=== PATIENT | female | born 1970 | race Caucasian/White ===

== ENCOUNTER 2018-02-02 23:27 | Inpatient (IN) ==
[2018-02-02] MEDS ORDERED: Sod Chloride 0.9% Inj 1,000 ML IV.SIG ONE (23:54)
--- NOTE | 2018-02-03 00:03 | ED ---
HPI General Chief Complaint: Abdominal Pain Stated Complaint: constipation x2 days Time Seen by Provider: 02/02/18 23:44 Source: patient Mode of arrival: ambulatory Limitations: no limitations History of Present Illness HPI narrative: Patient is a 47 year old female who presents to the ER with complaints of constipation. Patient reports that on Thursday she had shoulder surgery and was placed on hydrocodone for pain control. Patient reports that this hydrocodone has made her constipated. Patient reports that she has been having severe abdominal pain and bloating, she did have a bowel movement this morning but feels as if she is full of stool. Patient did take an enema as well as an oral laxative without relief of symptoms. Patient reports that she is uncomfortable, reports concerns for constipation. At baseline, she does not have bowel movements every day. Reports nausea with no vomiting, denies any fever or chills, no history of any abdominal surgeries in the past. MD complaint: abdominal pain Onset (ago): day(s) (2 days) Pain Consistency: constant Location: diffuse Severity: moderate Quality: cramping Radiation: none Relieving factors: nothing Exacerbating factors: medication (patient on hydrocodone for recent shoulder surgery) Associated symptoms: nausea Treatments prior to arrival: prescription analgesics Related Data Home Medications Medication Instructions Recorded Confirmed No Known Home Medications 02/02/18 02/02/18 Allergies Allergy/AdvReac Type Severity Reaction Status Date / Time aspirin Allergy Rash Verified 02/02/18 23:50 acetaminophen [From Percocet] AdvReac Severe Itching, Verified 02/02/18 23:50 Generalized oxycodone [From Percocet] AdvReac Severe Itching, Verified 02/02/18 23:50 Generalized Review of Systems ROS: all other systems reviewed are negative PMFSH Surgical History Surgical History S/P shoulder surgery (Acute) S/P partial hysterectomy (Acute) Social History Social History Substance History: No History of Abuse Second Hand Smoke Exposure: No Smoking Status: Never smoker How Often Do You Have a Drink Containing Alcohol: Monthly or less Recent Travel in [facility] within the Last 8 Weeks: No Recent Out of Country Travel within the Last 8 Weeks: No Immunization History Tetanus Immunization: Unsure Hx Influenza Vaccine This Season: No Exam Narrative Exam Narrative: GENERAL: Mild distress SKIN: Focused skin assessment warm/dry. HEAD: Atraumatic. Normocephalic. EYES: Pupils equal and round. No scleral icterus. No injection or drainage. ENT: No nasal bleeding or discharge. Mucous membranes pink and moist. NECK: Trachea midline. No JVD. CARDIOVASCULAR: Regular rate and rhythm. No murmur appreciated. RESPIRATORY: No accessory muscle use. Clear to auscultation. Breath sounds equal bilaterally. GASTROINTESTINAL: Abdomen soft, non-tender, nondistended. Hepatic and splenic margins not palpable. RECTAL EXAM: performed with RN at bedside, no stool in rectal vault, no fecal impaction MUSCULOSKELETAL: No obvious deformities. No clubbing. No cyanosis. No edema. NEUROLOGICAL: Awake and alert. No obvious cranial nerve deficits. Motor grossly within normal limits. Normal speech. PSYCHIATRIC: Appropriate mood and affect; insight and judgment normal. Course Initial Documented Vital Signs Temperature 97.7 F 02/02/18 23:28 Pulse Rate 70 02/02/18 23:28 Respiratory Rate 18 02/02/18 23:28 Blood Pressure 153/76 H 02/02/18 23:28 Pulse Oximetry 95 02/02/18 23:28 Last Documented Vital Signs Temperature 97.7 F 02/02/18 23:28 Pulse Rate 64 02/03/18 02:02 Respiratory Rate 18 02/03/18 02:02 Blood Pressure 147/76 H 02/03/18 02:02 Pulse Oximetry 98 02/03/18 02:02 Medical Decision Making MDM Narrative Medical decision making narrative: During the course of the patients emergency department visit, the patients history, examination, and differential diagnosis were reviewed with the patient. The patient was placed on a property assessment monitor with oximetry and frequent blood pressure monitoring. The patient had an IV access obtained and blood work sent for analysis. The patient was initially provided IVF as well as zofran Labs reviewed, patient with transaminitis with T bili 1.7, AST 471, ALT 449, alk phos 228 CT of the abdomen and pelvis with no acute findings, a right upper quadrant ultrasound was ordered to rule out gallbladder disease given her transaminitis and elevated T bili Patient was reevaluated, reports that she is not feeling any better. Patient's right upper quadrant ultrasound shows gallbladder stones and sludge with a mildly prominent common bile duct. Patient with mostly symptomatic cholelithiasis -she does have significant transaminitis as well as an elevated T bili, right upper quadrant tenderness with gallbladder stones and sludge Plan to admit to the medicine service Case reviewed with Dr. Duque who accepts pt to service. Medical Screen Exam Complete: Yes Emergency Medical Condition: Yes Differential Diagnosis Differential Diagnosis: constipation, fecal impaction, SBO, Cholecystitis, pancreatitis, appendicitis Medical Records Medical records reviewed: Yes I reviewed the patient's medical records. Lab Data Lab results reviewed: Yes I reviewed the patient's lab results. Result diagrams: 02/03/18 00:15 02/03/18 00:15 POC Results POC Urine Results Negative Lab Results 02/03/18 02/03/18 02/03/18 Range/Units 00:15 00:15 00:15 CBC w Diff Auto diff final WBC 8.3 (4.0-11.0) th/mm3 RBC 4.53 (4.00-5.30) mil/mm3 Hgb 13.4 (11.6-15.3) gm/dL Hct 39.8 (35.0-46.0) % MCV 88.0 (80.0-100.0) fL MCH 29.6 (27.0-34.0) pg MCHC 33.7 (32.0-36.0) % RDW 12.4 (11.6-17.2) % Plt Count 306 (150-450) th/mm3 MPV 9.0 (7.0-11.0) fL Neut % (Auto) 72.1 H (16.0-70.0) % Lymph % (Auto) 20.0 (9.0-44.0) % [place] % (Auto) 4.6 (0.0-8.0) % Eos % (Auto) 2.8 (0.0-4.0) % Baso % (Auto) 0.5 (0.0-2.0) % Neut # (Auto) 6.0 (1.8-7.7) th/mm3 Lymph # (Auto) 1.7 (1.0-4.8) th/mm3 [place] # (Auto) 0.4 (0.0-0.9) th/mm3 Eos # (Auto) 0.2 (0.0-0.4) th/mm3 Baso # (Auto) 0.0 (0.0-0.2) th/mm3 WBC Differential . Differential Comment . Sodium 136 (136-145) meq/L Potassium 3.6 (3.5-5.1) meq/L Chloride 101 (98-107) meq/L Carbon Dioxide 25.4 (21.0-32.0) meq/L Anion Gap 10 (5-15) meq/L BUN 9 (7-18) mg/dL Creatinine 0.74 (0.50-1.00) mg/dL Estimated GFR 83 L (>89) mL/min Random Glucose 135 H (74-106) mg/dL Calcium 9.2 (8.5-10.1) mg/dL Total Bilirubin 1.7 H (0.2-1.0) mg/dL AST 471 H (15-37) U/L ALT 449 H (10-53) U/L Alkaline Phosphatase 228 H (45-117) U/L Total Protein 8.3 H (6.4-8.2) g/dL Albumin 3.9 (3.4-5.0) g/dL Lipase 129 (73-393) U/L Urine Color Yellow (Yellw/Straw) Urine Clarity Clear (Clear) Urine pH 7.0 (5.0-8.5) Ur Specific [place] Less/equal 1.005 (1.002-1.035) Urine Protein Negative (Neg-Trace) mg/dL Urine Glucose (UA) Negative (Negative) mg/dL Urine Ketones Negative (Negative) mg/dL Urine Occult Blood Moderate H (Negative) Urine Nitrate Negative (Negative) Urine Bilirubin Negative (Negative) Urine Urobilinogen 1.0 (Less than 2) mg/dL Ur Leukocyte Esterase Negative (Negative) Urine RBC 15-50 H (0-3) /hpf Urine WBC 0-5 (0-5) /hpf Ur Squamous Epith Cells 0-5 (0-5) /hpf Micro UA Comment Culture not ind Ur Microscopic Review Microscopic reviewed Urine Culture Comments Culture not ind Imaging Data Attestation: I personally reviewed and interpreted this imaging study as follows : Radiologist's impression: Abdomen/Pelvis CT 02/03/18 00:35 CONCLUSION: No acute CT findings in the abdomen or pelvis. Gallbladder Ultrasound 02/03/18 02:07 CONCLUSION: 1. Gallbladder stones and sludge. 2. Mildly prominent common bile duct Discharge Plan Discharge Disposition Patient Disposition: 30 Still Patient Discharge Condition Condition: Stable Discharge Details Diagnosis: Symptomatic cholelithiasis Physicians Team ED Provider: Erica Gonzalez Primary Care Provider: Primary Care Leah Romo Rxs /Orders / Referrals /Forms Prescriptions: No Action No Known Home Medications RF: 0 Status ED Status: Admitted Observation Patient
[2018-02-03 00:23] LABS: Baso % (Auto) 0.5 % (0.0-2.0); Eos # (Auto) 0.2 th/mm3 (0.0-0.4); Eos % (Auto) 2.8 % (0.0-4.0); Hematocrit 39.8 % (35.0-46.0); Hemoglobin 13.4 gm/dL (11.6-15.3); Lymph # (Auto) 1.7 th/mm3 (1.0-4.8); Mean Corpuscular HGB Conc 33.7 % (32.0-36.0); Mean Corpuscular Hemoglobin 29.6 pg (27.0-34.0); Mono # (Auto) 0.4 th/mm3 (0.0-0.9); Mono % (Auto) 4.6 % (0.0-8.0); Neut % (Auto) 72.1 % (16.0-70.0); Platelet Count 306 th/mm3 (150-450); Red Blood Count 4.53 mil/mm3 (4.00-5.30); Red Cell Distribution Width 12.4 % (11.6-17.2); White Blood Count 8.3 th/mm3 (4.0-11.0)
[2018-02-03 00:26] LABS: Bilirubin,Urine Negative (Negative); Clarity,Urine Clear (Clear); Color,Urine Yellow (Yellw/Straw); Glucose,Urine (UA) Negative (Negative); Leukocyte Esterase,Urine Negative (Negative); Nitrite,Urine Negative (Negative); Specific Gravity,Urine Less/Equal 1.005 (1.002-1.035)
[2018-02-03 00:30] LABS: Chloride 101 meq/L (98-107); Potassium 3.6 meq/L (3.5-5.1); Sodium 136 meq/L (136-145)
[2018-02-03 00:32] LABS: Squamous Epithelial Cell,Urine 0-5 /hpf (0-5); WBC,Urine 0-5 /hpf (0-5)
[2018-02-03 00:34] LABS: Albumin 3.9 g/dL (3.4-5.0); Anion Gap 10 meq/L (5-15); Blood Urea Nitrogen 9 mg/dL (7-18); Calcium 9.2 mg/dL (8.5-10.1); Carbon Dioxide 25.4 meq/L (21.0-32.0); Glucose,Random 135 mg/dL (74-106); Lipase 129 U/L (73-393)
[2018-02-03 00:37] LABS: Alanine Aminotransferase 449 U/L (10-53); Aspartate Aminotransferase 471 U/L (15-37); Glomerular Filtration Rate 83 mL/min (>89)
[2018-02-03 00:39] LABS: Total Protein 8.3 g/dL (6.4-8.2)
[2018-02-03 00:40] LABS: Alkaline Phosphatase 228 U/L (45-117)
--- NOTE | 2018-02-03 02:00 | CT ---
EXAM DATE: 02/03/2018 1:34 AM EDT AGE/SEX: 47 years / Female INDICATIONS: Umbilical abdominal pain. Constipation. CLINICAL DATA: This is the patient's initial encounter. Patient reports that signs and symptoms have been present for 3 days and indicates a pain score of 5/10. MEDICAL/SURGICAL HISTORY: None. Hysterectomy. RADIATION DOSE: 19.35 CTDI (mGy) COMPARISON: No prior exams available for comparison. TECHNIQUE: Multiple contiguous axial images were obtained through the abdomen. Images were obtained using multiple row detector helical technique. Using automated exposure control and adjustment of the mA and/or kV according to patient size, radiation dose was kept as low as reasonably achievable to o btain optimal diagnostic quality images. DICOM format image data is available electronically for rev iew and comparison. FINDINGS: Lower Lungs: The visualized lower lungs are clear. Liver: The liver has a homogeneous density without space-occupying lesion. There is no dilation of th e biliary tree. Spleen: Homogeneous density without enlargement. Pancreas: Unremarkable without mass or calcification. Kidneys: Normal in size and shape. No evidence of mass or hydronephrosis. Adrenal Glands: Unremarkable. Aorta: The aorta and proximal iliac vessels are grossly unremarkable without aneurysmal dilation. Bowel/Mesentery: The bowel loops are grossly unremarkable. The cecum and sigmoid colon have a normal configuration. Appendix is seen and appears normal Abdominal Wall: Intact. Retroperitoneum: No evidence of adenopathy in the retrocrural, para-aortic, or deep pelvic regions. Bladder: Contours are smooth. Reproductive Organs: Uterus surgically absent. No evidence of pelvic mass or free fluid. Inguinal: The inguinal region is unremarkable without evidence of adenopathy. Bony Structures: Unremarkable. CONCLUSION: No acute CT findings in the abdomen or pelvis. Electronically signed by: Uday Wang MD 02/03/2018 1:59 AM EDT
--- NOTE | 2018-02-03 03:07 | US ---
EXAM DATE: 02/03/2018 2:54 AM EDT AGE/SEX: 47 years / Female INDICATIONS: Right upper quadrant pain. CLINICAL DATA: This is the patient's initial encounter. Patient reports that signs and symptoms have been present for 2 days and indicates a pain score of 8/10. MEDICAL/SURGICAL HISTORY: . Right upper quadrant pain. Hysterectomy. Shoulder surgery. COMPARISON: [facility], CT ABDOMEN & PELVIS W/O CONTRAST, 02/03/2018. . MEASUREMENTS: Liver:__ 19.3 cm. Common Bile Duct:__ 9mm. FINDINGS: Liver: Tiny cyst in the left lobe. No suspicious mass or biliary ductal dilatation. Portal Vein: Hepatopedal flow seen in portal vein. Common Duct: Mildly prominent at 9 mm in the hepatic hilum. No filling defects. Gallbladder: Mildly distended with stones and sludge Pancreas: Not well visualized. Right Kidney: Normal echotexture and cortical thickness. No mass or hydronephrosis. Other: None. CONCLUSION: 1. Gallbladder stones and sludge. 2. Mildly prominent common bile duct Electronically signed by: Uday Wang MD 02/03/2018 3:06 AM EDT
[2018-02-03] MEDS ORDERED: Morphine Inj 4 MG/ML Vial IV.PUSH ONE (03:41)
[2018-02-03] MEDS ORDERED: Bisacodyl 10 MG Supp RECTAL PRN (03:52)
[2018-02-03] MEDS: Sod Chloride 0.9% Inj 1,000 ML IV.CONT SCH ×3 (03:55→13:53)
[2018-02-03] MEDS ORDERED: Naloxone Inj 0.4 MG/ML Vial IV.PUSH PRN (05:33)
[2018-02-03] MEDS: Senna/Docusate Sodium 8.6/50 MG Tablet PO SCH ×2 (08:07→22:28)
[2018-02-03] MEDS: Morphine Inj 4 MG/ML Vial IV.PUSH PRN ×3 (08:07→20:13)
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
--- NOTE | 2018-02-03 11:10 | MR ---
EXAM DATE: 02/03/2018 10:59 AM EDT AGE/SEX: 47 years / Female INDICATIONS: Cholelithiasis. CLINICAL DATA: This is the patient's subsequent encounter. Patient reports that signs and symptoms h ave been present for 1 day and indicates a pain score of 3/10. MEDICAL/SURGICAL HISTORY: None. Rotator cuff, right. section. Hysterectomy. COMPARISON: [facility], CT ABDOMEN & PELVIS W/O CONTRAST, 02/03/2018. . TECHNIQUE: Multiplanar, multisequence images of the abdomen were obtained without contrast including dedicated cholangiographic images. FINDINGS: Liver: The liver is homogeneous and normal in signal intensity with multiple small cysts in the live r. Intrahepatic Bile Ducts: There is no intrahepatic biliary ductal dilatation. Common Bile Duct: The common bile duct is normal in caliber No filling defects or obstructing lesio ns are identified. Gallbladder: There is a 1.4 cm sized gallstone in the gallbladder. The gallbladder is normal with no evidence for gallbladder wall thickening, or pericholecystic fluid. Pancreas: The pancreas appears normal in signal with no focal parenchymal abnormalities. The pancrea tic duct is normal in caliber with no filling defects, or obstructing lesions identified. CONCLUSION: 1. 1.4 cm gallstone in the gallbladder otherwise unremarkable study Electronically signed by: Hilton Land MD 02/03/2018 11:08 AM EDT
--- NOTE | 2018-02-03 11:45 | P.CONGS ---
[facility] Gen Surgery Consult Note Consult date: 02/03/18 Reason for consult: abdominal pain Requesting physician: Erica Duque Narrative: This is a 47 year old female who just had a RIGHT shoulder rotator cuff last week in [place] who presented to the ED with complaints of abdominal pain. She was taking narcotic pain medication for her post op shoulder pain and thought she was constipated. She took several over the counter medications and did have a bowel movement but the pain persisted. She does report associated nausea and vomiting. A CT abdomen/pelvis was obtained which showed no acute findings. An US of the gallbladder was obtained which shows gallbladder stones and sludge as well as a mildly prominent common bile duct. Her LFTS are elevated. An MRCP was completed which shows a 1.4 cm gallstone with a normal size common bile duct. Of note, she states she has had similar mild episodes of abdominal pain for the past few years but the only workup she had was an EGD which showed mild gastritis. A General Surgery consultation has been requested. Review of Systems All other systems reviewed negative except as stated in [facility] - History History Provided By: Patient - Medical History Medical History: Medical History (Last Reviewed 02/03/18 @ 13:15 by RAÚL Mcghee) No pertinent past medical history - Surgical History Surgical History: Surgical History (Last Updated 02/03/18 @ 13:20 by RAÚL Mcghee) S/P section S/P shoulder surgery S/P partial hysterectomy - Family History Family History: Family History (Last Updated 02/03/18 @ 11:58 by Monica Infante) Other No pertinent family history - Tobacco History Second Hand Smoke Exposure: Yes Tobacco Use In Past 30 Days: No Smoking Status: Never smoker - Alcohol History How Often Do You Have a Drink Containing Alcohol: Monthly or less - Substance Use History Substance History: No History of Abuse - Travel History Recent Travel in the [place] Within the Last 8 Weeks: No Recent Travel Out of the Country Within the Last 8 Weeks: No - Immunization History Tetanus Immunization: Unsure Hx Influenza Vaccine This Season: No Medications and Allergies Allergies Allergy/AdvReac Type Severity Reaction Status Date / Time aspirin Allergy Rash Verified 02/02/18 23:50 acetaminophen [From Percocet] AdvReac Severe Itching, Verified 02/02/18 23:50 Generalized oxycodone [From Percocet] AdvReac Severe Itching, Verified 02/02/18 23:50 Generalized Home Medications Medication Instructions Recorded Confirmed Type No Known Home Medications 02/02/18 02/02/18 History Active Medications: Active Medications Al Hydroxide/Mg Hydroxide (Milk Of Magnesia Liq) 30 ml PO Q12H PRN PRN Reason: Mild Constipation Bisacodyl (Dulcolax Supp) 10 mg RECTAL DAILY PRN PRN Reason: SEVERE CONSITIPATION Sodium Chloride (Ns Inj) 1,000 mls @ 100 mls/hr IV.CONT .Q10H [facility] Last Infusion: 02/03/18 05:08 Dose: 100 mls/hr Lactulose (Lactulose Liq) 30 ml PO DAILY PRN PRN Reason: SEVERE CONSITIPATION Morphine Sulfate (Morphine Inj) 4 mg IV.PUSH Q4H PRN PRN Reason: pain 6-10 Last Admin: 02/03/18 08:07 Dose: 4 mg Naloxone HCl (Narcan Inj) 0.4 mg IV.PUSH UNSCH PRN PRN Reason: SEE LABEL COMMENTS Ondansetron HCl (Zofran Inj) 4 mg IV.PUSH Q6H PRN PRN Reason: NAUSEA OR VOMITING Last Admin: 02/03/18 08:07 Dose: 4 mg Senna/Docusate Sodium (Shima-Colace) 1 tab PO BID [facility] Last Admin: 02/03/18 08:07 Dose: 1 tab Sennosides (Senokot) 17.2 mg PO Q12H PRN PRN Reason: Moderate Constipation Sodium Chloride (Ns Flush) 2 ml IV.FLUSH PRN PRN PRN Reason: FLUSH AFTER USING IV ACCESS Exam Vital signs: Vital Signs 02/02/18 23:28 02/03/18 02:02 02/03/18 03:53 Temperature 97.7 F Pulse Rate 70 64 66 Respiratory Rate 18 18 18 Blood Pressure 153/76 H 147/76 H 146/82 H Pulse Oximetry 95 98 97 02/03/18 05:06 02/03/18 08:00 Temperature 97.5 F L 98.8 F Pulse Rate 72 67 Respiratory Rate 16 16 Blood Pressure 137/68 128/72 Pulse Oximetry 95 96 Intake & Output 02/02/18 02/03/18 02/03/18 18:59 06:59 18:59 Intake Total 1150 / 1150 Balance 1150 / 1150 Weight 76.6 kg Intake: IV 1150 / 1150 NS Inj 1,000 ML @ 100 mls/hr IV 150 / 150 .CONT .Q10H IRVIN Rx#:[id number] NS Inj 1,000 ML @ Wide Open IV. 1000 / 1000 SIG BOLUS ONE Rx#:[id number] Other: Date of Last Bowel Movement 02/02/18 Weight On Admission 154.94 kg Narrative: GENERAL: Very pleasant 47 year old female resting in bed in no acute distress. SKIN: Warm and dry. HEAD: Atraumatic. Normocephalic. EYES: Pupils equal and round. No scleral icterus. No injection or drainage. ENT: No nasal bleeding or discharge. Mucous membranes pink and moist. NECK: Trachea midline. CARDIOVASCULAR: Regular rate and rhythm. RESPIRATORY: No accessory muscle use. Clear to auscultation. Breath sounds equal bilaterally. GASTROINTESTINAL: Abdomen soft, non distended. RUQ tenderness with palpation. Low well healed incision. MUSCULOSKELETAL: Extremities without clubbing, cyanosis, or edema. No obvious deformities. NEUROLOGICAL: Awake and alert. No obvious cranial nerve deficits. RIGHT arm in sling with RIGHT shoulder dressing. Normal speech. PSYCHIATRIC: Appropriate mood and affect; insight and judgment normal. Results - Labs 02/03/18 00:15 02/03/18 00:15 Laboratory Results CBC w Diff Auto diff final 02/03/18 00:15 WBC 8.3 th/mm3 (4.0-11.0) 02/03/18 00:15 RBC 4.53 mil/mm3 (4.00-5.30) 02/03/18 00:15 Hgb 13.4 gm/dL (11.6-15.3) 02/03/18 00:15 Hct 39.8 % (35.0-46.0) 02/03/18 00:15 MCV 88.0 fL (80.0-100.0) 02/03/18 00:15 MCH 29.6 pg (27.0-34.0) 02/03/18 00:15 MCHC 33.7 % (32.0-36.0) 02/03/18 00:15 RDW 12.4 % (11.6-17.2) 02/03/18 00:15 Plt Count 306 th/mm3 (150-450) 02/03/18 00:15 MPV 9.0 fL (7.0-11.0) 02/03/18 00:15 Neut % (Auto) 72.1 % (16.0-70.0) H 02/03/18 00:15 Lymph % (Auto) 20.0 % (9.0-44.0) 02/03/18 00:15 [place] % (Auto) 4.6 % (0.0-8.0) 02/03/18 00:15 Eos % (Auto) 2.8 % (0.0-4.0) 02/03/18 00:15 Baso % (Auto) 0.5 % (0.0-2.0) 02/03/18 00:15 Neut # (Auto) 6.0 th/mm3 (1.8-7.7) 02/03/18 00:15 Lymph # (Auto) 1.7 th/mm3 (1.0-4.8) 02/03/18 00:15 [place] # (Auto) 0.4 th/mm3 (0.0-0.9) 02/03/18 00:15 Eos # (Auto) 0.2 th/mm3 (0.0-0.4) 02/03/18 00:15 Baso # (Auto) 0.0 th/mm3 (0.0-0.2) 02/03/18 00:15 WBC Differential . 02/03/18 00:15 Differential Comment . 02/03/18 00:15 Sodium 136 meq/L (136-145) 02/03/18 00:15 Potassium 3.6 meq/L (3.5-5.1) 02/03/18 00:15 Chloride 101 meq/L (98-107) 02/03/18 00:15 Carbon Dioxide 25.4 meq/L (21.0-32.0) 02/03/18 00:15 Anion Gap 10 meq/L (5-15) 02/03/18 00:15 BUN 9 mg/dL (7-18) 02/03/18 00:15 Creatinine 0.74 mg/dL (0.50-1.00) 02/03/18 00:15 Estimated GFR 83 mL/min (>89) L 02/03/18 00:15 Random Glucose 135 mg/dL (74-106) H 02/03/18 00:15 Calcium 9.2 mg/dL (8.5-10.1) 02/03/18 00:15 Total Bilirubin 1.7 mg/dL (0.2-1.0) H 02/03/18 00:15 AST 471 U/L (15-37) H 02/03/18 00:15 ALT 449 U/L (10-53) H 02/03/18 00:15 Alkaline Phosphatase 228 U/L (45-117) H 02/03/18 00:15 Total Protein 8.3 g/dL (6.4-8.2) H 02/03/18 00:15 Albumin 3.9 g/dL (3.4-5.0) 02/03/18 00:15 Lipase 129 U/L (73-393) 02/03/18 00:15 Urine Color Yellow (Yellw/Straw) 02/03/18 00:15 Urine Clarity Clear (Clear) 02/03/18 00:15 Urine pH 7.0 (5.0-8.5) 02/03/18 00:15 Ur Specific [place] Less/equal 1.005 (1.002-1.035) 02/03/18 00:15 Urine Protein Negative mg/dL (Neg-Trace) 02/03/18 00:15 Urine Glucose (UA) Negative mg/dL (Negative) 02/03/18 00:15 Urine Ketones Negative mg/dL (Negative) 02/03/18 00:15 Urine Occult Blood Moderate (Negative) H 02/03/18 00:15 Urine Nitrate Negative (Negative) 02/03/18 00:15 Urine Bilirubin Negative (Negative) 02/03/18 00:15 Urine Urobilinogen 1.0 mg/dL (Less than 2) 02/03/18 00:15 Ur Leukocyte Esterase Negative (Negative) 02/03/18 00:15 Urine RBC 15-50 /hpf (0-3) H 02/03/18 00:15 Urine WBC 0-5 /hpf (0-5) 02/03/18 00:15 Ur Squamous Epith Cells 0-5 /hpf (0-5) 02/03/18 00:15 Micro UA Comment Culture not ind 02/03/18 00:15 Ur Microscopic Review Microscopic reviewed 02/03/18 00:15 Urine Culture Comments Culture not ind 02/03/18 00:15 Impressions Cholangiopancreatography MRI 02/03/18 00:00 CONCLUSION: 1. 1.4 cm gallstone in the gallbladder otherwise unremarkable study Abdomen/Pelvis CT 02/03/18 00:35 CONCLUSION: No acute CT findings in the abdomen or pelvis. Gallbladder Ultrasound 02/03/18 02:07 CONCLUSION: 1. Gallbladder stones and sludge. 2. Mildly prominent common bile duct - Imaging CT scan - abdomen: image reviewed Additional studies: US gallbladder and MRCP reviewed Assessment and Plan - Assessment (1) Symptomatic cholelithiasis Code(s): K80.20 - Calculus of gallbladder without cholecystitis without obstruction Status: Acute Plan: 47 year old female s/p 1 week RIGHT shoulder surgery now with symptomatic cholelithiasis -MRCP reviewed---no need for ERCP -Plan for lap taylor this afternoon if OR available -NPO -Obtain consents -Pre operative antibiotics have been ordered -Repeat LFTs in AM -Procedure explained including risks and benefits -Thank you for this consult; We will continue to follow - Plan I personally evaluated the patient in room a 16. She is a 47-year-old woman who is one-week status post right shoulder surgery by an orthopedic surgeon in [place] whose name she all. She was supposed to have follow-up there tomorrow. She would developed bloating and thought she was constipated related to pain medications and workup is demonstrated findings consistent with calculus cholecystitis. I have recommended to her laparoscopic cholecystectomy. The procedure in detail is been described as she and her [id number] who is at her bedside. Procedure in detail plus risks of bleeding infection injury to intra-abdominal contents including liver bile duct or bowel possible open surgery DVT pulmonary embolus and expectations for recovery have been reviewed in detail. I contacted the operating room to get her on the schedule, however there is no personnel in the operating room here at the hospital they would have to be called in and there is no certain time that I could be given to schedule her surgery today. I therefore requested time tomorrow morning at 730 to perform her surgery. Preoperative antibiotics and sequential compression device will be used. I personally reviewed her CT scan, her ultrasound, her MRCP. The patient's only prior surgery on the abdomen was low transverse incision including partial hysterectomy and . She has palpable pain in the right upper quadrant, right subcostal position, consistent with cholecystitis. She says she has had an MRI in the past which demonstrated an ovarian cyst. She denies any problems with her recent anesthesia for her shoulder surgery, no nausea or vomiting. She still has somewhat of a sore throat from the intubation however. She indicates her only allergy is to aspirin and it causes a rash. Documentation indicates acetaminophen and oxycodone are an allergy I will specifically ask about what pain medication she would like to use after her surgery. As soon as I get confirmation from the operating room that we can do her surgery tomorrow morning I will let the patient know. The exam, history, and the medical decision-making described in the above note were completed with the assistance of the mid-level provider. I reviewed and agree with the findings presented. I attest that I had a [id number] encounter with the patient on the same day, and personally performed and documented my assessment and findings in the medical record. Discussed Condition With: Dr. Kuldip Quinones/Monica Lim
[2018-02-03] MEDS ORDERED: ceFAZolin 2 GM Premix Inj 2 GM/50 ML PIGGYBACK IV.SIG ONE (13:22)
[2018-02-03] MEDS ORDERED: fentaNYL Citrate Inj 100 MCG/2 ML Ampul ONE ×2 (16:41)
[2018-02-03] MEDS ORDERED: Bupivacaine/Epinephrine Inj 0.25% 50 ML Vial ONE (16:43)
[2018-02-03] MEDS ORDERED: Bupivacaine/Epinephrine PF Inj 0.5% 30 ML Vial ONE (16:43)
[2018-02-03] MEDS ORDERED: Chlorhexidine Gluconate 2% 1 Pack (2 Cloths) TOPICAL ONE (16:57)
[2018-02-03] MEDS ORDERED: Metoprolol Tartrate 25 MG Tablet PO ONE (16:57)
[2018-02-03] MEDS ORDERED: Sodium Chlor 0.9% Inj 500 ML IV.SIG SCH (17:00)
--- NOTE | 2018-02-03 18:04 | P.OP ---
- Preoperative Diagnosis (1) Calculus of gallbladder with cholecystitis - Postoperative Diagnosis (1) Calculus of gallbladder with cholecystitis Date of procedure: 02/03/18 Procedure: Laparoscopic cholecystectomy Anesthesia: SONNY Surgeon: Juan Christiansen MD Flight Attendant/Inflight Supervisor: Shiva Estimated blood loss (mL): 5 Pathology: other (Gallbladder to pathology) Operation and Findings: Patient was identified is Kaley Lim, taken to the operating room, placed in a supine position. Following induction of adequate general endotracheal anesthesia the patient's abdomen was prepped and draped in usual sterile fashion with Betadine. A timeout procedure was performed. Following completion of timeout procedure everyone's satisfaction within the room, a timeout local anesthetic was infiltrated in the supraumbilical position. A small transverse supraumbilical incision was carried out with a scalpel. Dissection came posteriorly to level the base of the umbilicus. This was retracted anteriorly and the supraumbilical fascia incised vertically with a scalpel. This allowed for entry in the peritoneal cavity with a hemostat. Surgeon's finger confirmed intraperitoneal location and the applied medical balloon Wheeler trocar was placed in the peritoneal cavity. CO2 insufflation was performed to the level of 15 mmHg. The patient was placed in a reverse Trendelenburg position turn to left and 2 upper abdominal 5 mm trochars were placed into the peritoneal cavity under direct laparoscopic view after incision and skin with a scalpel. Attention was turned to identification of the gallbladder. Inflammatory adhesions of the omentum covered the gallbladder. These were taken down with a harmonic scalpel. The gallbladder was then removed from the gallbladder fossa and a dome down technique using the harmonic scalpel. There were inflammatory changes and edema in the wall of the gallbladder. Cystic arterial branches of which there were 2 were identified isolated from surrounding tissues and clipped divided using the harmonic scalpel. The cystic duct was isolated from surrounding tissues and ligated proximally distally with 2-0 PDS Endoloops. The cystic duct was divided between the Endoloops using the harmonic scalpel. The gallbladder was placed into an Endo retrieval bag and removed through the supraumbilical fascial incision which had to be extended superiorly to allow for removal of a distended inflamed gallbladder. The gallbladder was passed off the field for pathologic evaluation. Right upper quadrant was examined. Small amount of edematous fluid was suctioned out. There is no bilious or bloody drainage. The cystic duct ligature remained intact. The cystic arterial stump was hemostatic. Brief evaluation of her surrounding anatomic structures demonstrated no obvious abnormality. Attempts to evaluate history of ovarian cyst in the pelvis were unsuccessful due to omental adhesions in this location. These were left alone. Trochars were removed under direct visualization there was no evidence of bleeding from trocar sites. The abdomen was actively desufflated through the supraumbilical port which was then removed. Supra umbilical fascial defect was closed with multiple interrupted 0 Vicryl sutures. Port sites were irrigated with saline. Skin incisions were approximated for Monocryl subcuticular sutures. Dressings were applied with Mastisol and half-inch brown Steri- Strips. The patient tolerated the procedure without apparent complication. Sponge needle and instrument counts were correct at the end of the case. The patient was transported to PACU in stable condition.
[2018-02-04] MEDS: Morphine Inj 4 MG/ML Vial IV.PUSH PRN (00:16)
[2018-02-04] MEDS: Sod Chloride 0.9% Inj 1,000 ML IV.CONT SCH ×3 (03:26→21:05)
[2018-02-04 06:54] LABS: Baso % (Auto) 0.1 % (0.0-2.0); Eos % (Auto) 0.1 % (0.0-4.0); Hematocrit 36.1 % (35.0-46.0); Hemoglobin 12.3 gm/dL (11.6-15.3); Lymph % (Auto) 8.4 % (9.0-44.0); Mean Corpuscular Volume 88.2 fL (80.0-100.0); Mean Platelet Volume 9.6 fL (7.0-11.0); Mono # (Auto) 0.5 th/mm3 (0.0-0.9); Mono % (Auto) 4.1 % (0.0-8.0); Neut # (Auto) 10.4 th/mm3 (1.8-7.7); Neut % (Auto) 87.3 % (16.0-70.0); Platelet Count 264 th/mm3 (150-450); Red Blood Count 4.09 mil/mm3 (4.00-5.30); Red Cell Distribution Width 12.1 % (11.6-17.2); White Blood Count 11.9 th/mm3 (4.0-11.0)
[2018-02-04 07:21] LABS: Chloride 102 meq/L (98-107); Potassium 3.7 meq/L (3.5-5.1); Sodium 136 meq/L (136-145)
[2018-02-04 07:39] LABS: Alanine Aminotransferase 535 U/L (10-53); Albumin 3.3 g/dL (3.4-5.0); Alkaline Phosphatase 233 U/L (45-117); Anion Gap 11 meq/L (5-15); Aspartate Aminotransferase 380 U/L (15-37); Blood Urea Nitrogen 6 mg/dL (7-18); Calcium 8.2 mg/dL (8.5-10.1); Carbon Dioxide 23.4 meq/L (21.0-32.0); Glomerular Filtration Rate Greater Than 89 mL/min (>89); Glucose,Random 119 mg/dL (74-106); Total Protein 7.2 g/dL (6.4-8.2)
--- NOTE | 2018-02-04 07:59 | P.PNGS ---
Subjective Interval history: Resting in bed Painful Does not feel ready to go home Physical Exam Vital signs: Vital Signs 02/03/18 08:00 02/03/18 12:00 02/03/18 16:49 Temperature 98.8 F 97.4 F L 97.4 F L Pulse Rate 67 61 61 Respiratory Rate 16 16 20 Blood Pressure 128/72 136/75 136/75 Pulse Oximetry 96 97 97 02/03/18 18:15 02/03/18 18:30 02/03/18 18:45 Temperature 98.0 F 98.0 F Pulse Rate 75 75 58 L Respiratory Rate 14 15 15 Blood Pressure 94/53 L 103/53 L 112/60 Pulse Oximetry 94 L 96 100 02/03/18 20:00 02/04/18 00:00 02/04/18 04:00 Temperature 96 F L 98.1 F 99.3 F Pulse Rate 60 73 74 Respiratory Rate 18 20 20 Blood Pressure 139/79 129/77 145/79 H Pulse Oximetry 100 96 97 Intake & Output 02/03/18 02/04/18 02/04/18 18:59 06:59 18:59 Intake Total 2310 / 2310 740 / 740 Balance 2310 / 2310 740 / 740 Weight 77 kg Intake: IV 1350 / 1350 500 / 500 NS Inj 1,000 ML @ 100 mls/hr IV 850 / 850 500 / 500 .CONT .Q10H IRVIN Rx#:[id number] LR 1000 mL Inj 1,000 ML @ 30 450 / 450 mls/hr IV.SIG .Q24H IRVIN Rx#: [id number] Ancef 2 GM Premix Inj 2 gm In 50 / 50 50 ml @ 100 mls/hr IV.SIG ONCE ONE Rx#:[id number] Oral 960 / 960 240 / 240 Other: # Voids 6 3 # Bowel Movements 0 Narrative: Alert and awake Sclera white no yellowing of skin Abd: lap sites c/d/i; tender at incisions sites RIGHT shoulder dressing in place Results - Labs 02/04/18 05:30 02/04/18 05:50 Laboratory Results - last 24 hr 02/04/18 02/04/18 05:30 05:50 CBC w Diff Auto diff final WBC 11.9 H RBC 4.09 Hgb 12.3 Hct 36.1 MCV 88.2 MCH 30.0 MCHC 34.0 RDW 12.1 Plt Count 264 MPV 9.6 Neut % (Auto) 87.3 H Lymph % (Auto) 8.4 L Saline % (Auto) 4.1 Eos % (Auto) 0.1 Baso % (Auto) 0.1 Neut # (Auto) 10.4 H Lymph # (Auto) 1.0 Saline # (Auto) 0.5 Eos # (Auto) 0.0 Baso # (Auto) 0.0 WBC Differential . Differential Comment . Sodium 136 Potassium 3.7 Chloride 102 Carbon Dioxide 23.4 Anion Gap 11 BUN 6 L Creatinine 0.51 Estimated GFR Greater than 89 Random Glucose 119 H Calcium 8.2 L D Total Bilirubin 3.2 H AST 380 H ALT 535 H Alkaline Phosphatase 233 H Total Protein 7.2 D Albumin 3.3 L D - Imaging Imaging: ITS Impressions Cholangiopancreatography MRI 02/03/18 00:00 CONCLUSION: 1. 1.4 cm gallstone in the gallbladder otherwise unremarkable study Abdomen/Pelvis CT 02/03/18 00:35 CONCLUSION: No acute CT findings in the abdomen or pelvis. Gallbladder Ultrasound 02/03/18 02:07 CONCLUSION: 1. Gallbladder stones and sludge. 2. Mildly prominent common bile duct Assessment and Plan - Assessment (1) Symptomatic cholelithiasis Code(s): K80.20 - Calculus of gallbladder without cholecystitis without obstruction Status: Acute Plan: 47 year old female s/p 1 week RIGHT shoulder surgery now with symptomatic cholelithiasis -POD1 lap taylor -LFTs elevated -Will defer to Primary team for GI consult -Diet as tolerated -Follow up with Dr. Christiansen on Feb 16 at 1200 - Plan POD 1 s/p lap taylor, cholecystitis. LFT elevation, anticipate GI evaluation. MRCP showed no CBD stones. The exam, history, and the medical decision-making described in the above note were completed with the assistance of the mid-level provider. I reviewed and agree with the findings presented. I attest that I had a [id number] encounter with the patient on the same day, and personally performed and documented my assessment and findings in the medical record.
[2018-02-04] MEDS: Senna/Docusate Sodium 8.6/50 MG Tablet PO SCH ×2 (08:43→21:06)
[2018-02-04 11:22] LABS: Albumin 3.3 g/dL (3.4-5.0)
[2018-02-04 11:27] LABS: Total Protein 7.3 g/dL (6.4-8.2)
--- NOTE | 2018-02-04 11:52 | P.PNIM ---
Subjective Interval history: Follow-up acute cholecystitis. Patient seen and examined, lying in bed states that she has continued nausea, pain is well controlled at this time. She is mildly jaundiced today. Bilirubin has increased status post cholecystectomy last evening. Awaiting gastroenterology input. Patient states that nothing has been effective for controlling her nausea. She has not eat or drink anything. Physical Exam Vital signs: Vital Signs 02/03/18 12:00 02/03/18 16:49 02/03/18 18:15 Temperature 97.4 F L 97.4 F L 98.0 F Pulse Rate 61 61 75 Respiratory Rate 16 20 14 Blood Pressure 136/75 136/75 94/53 L Pulse Oximetry 97 97 94 L 02/03/18 18:30 02/03/18 18:45 02/03/18 20:00 Temperature 98.0 F 96 F L Pulse Rate 75 58 L 60 Respiratory Rate 15 15 18 Blood Pressure 103/53 L 112/60 139/79 Pulse Oximetry 96 100 100 02/04/18 00:00 02/04/18 04:00 02/04/18 08:00 Temperature 98.1 F 99.3 F 98.8 F Pulse Rate 73 74 71 Respiratory Rate 20 20 20 Blood Pressure 129/77 145/79 H 141/72 H Pulse Oximetry 96 97 96 Intake & Output 02/03/18 02/04/18 02/04/18 18:59 06:59 18:59 Intake Total 2310 / 2310 740 / 740 Balance 2310 / 2310 740 / 740 Weight 77 kg Intake: IV 1350 / 1350 500 / 500 NS Inj 1,000 ML @ 100 mls/hr IV 850 / 850 500 / 500 .CONT .Q10H IRVIN Rx#:[id number] LR 1000 mL Inj 1,000 ML @ 30 450 / 450 mls/hr IV.SIG .Q24H IRVIN Rx#: [id number] Ancef 2 GM Premix Inj 2 gm In 50 / 50 50 ml @ 100 mls/hr IV.SIG ONCE ONE Rx#:[id number] Oral 960 / 960 240 / 240 Other: # Voids 6 3 Date of Last Bowel Movement 02/02/18 # Bowel Movements 0 Narrative: GENERAL: Well-developed, well-nourished patient with complaints of continued nausea. SKIN: Warm and dry. No rash. Mildly jaundiced. HEAD: Normocephalic. Atraumatic. EYES: Pupils equal and round. No scleral icterus. No injection or drainage. ENT: No nasal bleeding or discharge. Mucous membranes pink and moist. NECK: Supple. Trachea midline. CARDIOVASCULAR: Regular rate and rhythm. S1, S2 noted. No murmur appreciated. RESPIRATORY: No accessory muscle use. Clear to auscultation. Breath sounds equal bilaterally. GASTROINTESTINAL: Abdomen soft, mildly distended, postoperative Steri-Strips in place, clean dry and intact no drainage noted. Hypoactive bowel sounds x4. MUSCULOSKELETAL: No obvious deformities. Extremities without clubbing, cyanosis , or edema. Right shoulder dressing in place clean dry intact. NEUROLOGICAL: Awake and alert. No obvious cranial nerve deficits. Motor grossly within normal limits. 5/5 muscle strength in bilateral upper and lower extremities. Normal speech. PSYCHIATRIC: Appropriate mood and affect; insight and judgment normal. Results - Labs CBC & Chem 7: 02/04/18 05:30 02/04/18 05:50 Laboratory Results - last 24 hr 02/04/18 02/04/18 02/04/18 05:30 05:50 05:50 CBC w Diff Auto diff final WBC 11.9 H RBC 4.09 Hgb 12.3 Hct 36.1 MCV 88.2 MCH 30.0 MCHC 34.0 RDW 12.1 Plt Count 264 MPV 9.6 Neut % (Auto) 87.3 H Lymph % (Auto) 8.4 L [place] % (Auto) 4.1 Eos % (Auto) 0.1 Baso % (Auto) 0.1 Neut # (Auto) 10.4 H Lymph # (Auto) 1.0 [place] # (Auto) 0.5 Eos # (Auto) 0.0 Baso # (Auto) 0.0 WBC Differential . Differential Comment . Sodium 136 Potassium 3.7 Chloride 102 Carbon Dioxide 23.4 Anion Gap 11 BUN 6 L Creatinine 0.51 Estimated GFR Greater than 89 Random Glucose 119 H Calcium 8.2 L D Total Bilirubin 3.2 H Direct Bilirubin 2.2 H Indirect Bilirubin AST 380 H ALT 535 H Alkaline Phosphatase 233 H Total Protein 7.2 D Albumin 3.3 L D 02/04/18 10:35 CBC w Diff WBC RBC Hgb Hct MCV MCH MCHC RDW Plt Count MPV Neut % (Auto) Lymph % (Auto) [place] % (Auto) Eos % (Auto) Baso % (Auto) Neut # (Auto) Lymph # (Auto) [place] # (Auto) Eos # (Auto) Baso # (Auto) WBC Differential Differential Comment Sodium Potassium Chloride Carbon Dioxide Anion Gap BUN Creatinine Estimated GFR Random Glucose Calcium Total Bilirubin 3.7 H Direct Bilirubin 2.6 H Indirect Bilirubin 1.1 H AST 421 H ALT 586 H Alkaline Phosphatase 254 H Total Protein 7.3 Albumin 3.3 L Assessment and Plan - Assessment (1) Symptomatic cholelithiasis Code(s): K80.20 - Calculus of gallbladder without cholecystitis without obstruction Status: Acute - Plan This is a 47-year-old female patient with: Acute symptomatic cholelithiasis, status post cholecystectomy 02/03/18. Transaminitis and elevated bilirubin suspect secondary to above. -Patient reports of right upper quadrant abdominal pain and bloating with constipation 2 days. -Recently on hydrocodone for pain control status post shoulder surgery. -Reports of last bowel movement 2 days ago. -Abdominal pelvis CT reviewed no significant findings. Gallbladder ultrasound reviewed showing stones and sludge. As well as possible common bile duct stone. An MRCP was performed, showing a 1.4 cm gallbladder stone with no other remarkable findings. -General surgery has seen patient, appreciate input and recommendations. S/p cholecystectomy 02/03/18. -CBC reviewed, essentially unremarkable. Afebrile. No leukocytosis. Monitor for infection. Continue to monitor LFTs. -Regular diet as tolerated. -Antiemetics as needed. Continue IVF. -Pain control, Dilaudid IV available as needed for pain scale. -Worsening total bilirubin levels today, mild jaundice noted on exam. Start hepatitis workup. Will consult GI, will await further recommendations and input. -Supportive care. Constipation secondary to narcotics -Continue bowel regimen. Monitor response. DVT prophylaxis: SCDs. Ambulation. Discharge Planning: Awaiting clinical improvement, worsening labs today. Awaiting GI workup.
[2018-02-04] MEDS: HYDROmorphone PF Inj 1 MG/ML Ampul IV.PUSH PRN ×3 (12:32→21:06)
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
--- NOTE | 2018-02-04 18:42 | ECG ---
Date Performed: 02/03/2018 Time Performed: 13:25:43 PTAGE: 47 years EKG: Sinus rhythm NONSPECIFIC ST-T WAVE CHANGES NORMAL ECG NO PREVIOUS TRACING DOCTOR: Angel Morales Interpretating Date/Time 02/04/2018 18:41:24
[2018-02-05] MEDS: HYDROmorphone PF Inj 1 MG/ML Ampul IV.PUSH PRN ×5 (00:04→18:37)
[2018-02-05] MEDS: Sod Chloride 0.9% Inj 1,000 ML IV.CONT SCH ×3 (07:18→23:25)
[2018-02-05] MEDS: Senna/Docusate Sodium 8.6/50 MG Tablet PO SCH ×2 (09:38→21:14)
--- NOTE | 2018-02-05 12:44 | P.PNIM ---
Subjective Interval history: Follow up acute cholecystitis and elevated LFTs. Patient seen and examined, patient still complaints of n/v and needing of antiemetics. Abdominal pain has improved. Afebrile. VSS. Physical Exam Vital signs: Vital Signs 02/04/18 16:00 02/04/18 20:00 02/05/18 00:00 Temperature 97.1 F L 98 F 98.2 F Pulse Rate 60 62 67 Respiratory Rate 20 18 20 Blood Pressure 118/64 141/70 H 131/71 Pulse Oximetry 94 L 95 94 L 02/05/18 08:00 02/05/18 10:30 Temperature 98.5 F Pulse Rate 66 Respiratory Rate 19 18 Blood Pressure 140/69 Pulse Oximetry 96 Intake & Output 02/04/18 02/05/18 02/05/18 18:59 06:59 18:59 Intake Total 1000 / 1000 720 / 720 1000 / 1000 Output Total 300 / 300 Balance 1000 / 1000 720 / 720 700 / 700 Weight 75.3 kg Intake: IV 1000 / 1000 1000 / 1000 NS Inj 1,000 ML @ 100 mls/hr IV 1000 / 1000 1000 / 1000 .CONT .Q10H IRVIN Rx#:[id number] Oral 720 / 720 0 / 0 Output: Urine 300 / 300 Other: # Voids 3 4 Date of Last Bowel Movement 02/02/18 02/02/18 Narrative: GENERAL: Well-developed, well-nourished patient with complaints of continued nausea. SKIN: Warm and dry. No rash. Mildly jaundiced. Right shoulder dressing taken off clean d/i. Steri strips present. HEAD: Normocephalic. Atraumatic. EYES: Pupils equal and round. No scleral icterus. No injection or drainage. ENT: No nasal bleeding or discharge. Mucous membranes pink and moist. NECK: Supple. Trachea midline. CARDIOVASCULAR: Regular rate and rhythm. S1, S2 noted. No murmur appreciated. RESPIRATORY: No accessory muscle use. Clear to auscultation. Breath sounds equal bilaterally. GASTROINTESTINAL: Abdomen soft, mildly distended, postoperative Steri-Strips in place, clean dry and intact no drainage noted. Hypoactive bowel sounds x4. MUSCULOSKELETAL: No obvious deformities. Extremities without clubbing, cyanosis , or edema. NEUROLOGICAL: Awake and alert. No obvious cranial nerve deficits. Motor grossly within normal limits. 5/5 muscle strength in bilateral upper and lower extremities. Normal speech. PSYCHIATRIC: Appropriate mood and affect; insight and judgment normal. Results - Labs CBC & Chem 7: 02/04/18 05:30 02/04/18 05:50 Assessment and Plan - Assessment (1) Symptomatic cholelithiasis Code(s): K80.20 - Calculus of gallbladder without cholecystitis without obstruction Status: Acute - Plan This is a 47-year-old female patient with: Acute symptomatic cholelithiasis, status post cholecystectomy 02/03/18. Transaminitis and elevated bilirubin suspect secondary to above. -Patient reports of right upper quadrant abdominal pain and bloating with constipation 2 days. -Recently on hydrocodone for pain control status post shoulder surgery. -Reports of last bowel movement 2 days ago. -Abdominal pelvis CT reviewed no significant findings. Gallbladder ultrasound reviewed showing stones and sludge. As well as possible common bile duct stone. An MRCP was performed, showing a 1.4 cm gallbladder stone with no other remarkable findings. -General surgery has seen patient, appreciate input and recommendations. S/p cholecystectomy 02/03/18. Will undergo a EGD/colonoscopy today. -CBC reviewed, essentially unremarkable. Afebrile. No leukocytosis. Monitor for infection. Continue to monitor LFTs. -Antiemetics as needed. Continue IVF. -Pain control, Dilaudid IV available as needed for pain scale. -Worsening total bilirubin levels, mild jaundice noted on exam. Start hepatitis workup. GI following patient. -Supportive care. Constipation secondary to narcotics -Continue bowel regimen. Monitor response. -Still without BM. DVT prophylaxis: SCDs. Ambulation. Discharge Planning: Awaiting clinical improvement, worsening labs. Awaiting GI , will undergo EGD and colon today.
--- NOTE | 2018-02-05 13:38 | P.PNGS ---
Subjective Patient reports: still having pain, nausea (Patient is on the schedule for this afternoon at 230 for upper endoscopy possible ERCP.) Physical Exam Vital signs: Vital Signs 02/04/18 16:00 02/04/18 20:00 02/05/18 00:00 Temperature 97.1 F L 98 F 98.2 F Pulse Rate 60 62 67 Respiratory Rate 20 18 20 Blood Pressure 118/64 141/70 H 131/71 Pulse Oximetry 94 L 95 94 L 02/05/18 08:00 02/05/18 10:30 Temperature 98.5 F Pulse Rate 66 Respiratory Rate 19 18 Blood Pressure 140/69 Pulse Oximetry 96 Intake & Output 02/04/18 02/05/18 02/05/18 18:59 06:59 18:59 Intake Total 1000 / 1000 720 / 720 1000 / 1000 Output Total 300 / 300 Balance 1000 / 1000 720 / 720 700 / 700 Weight 75.3 kg Intake: IV 1000 / 1000 1000 / 1000 NS Inj 1,000 ML @ 100 mls/hr IV 1000 / 1000 1000 / 1000 .CONT .Q10H IRVIN Rx#:[id number] Oral 720 / 720 0 / 0 Output: Urine 300 / 300 Other: # Voids 3 4 Date of Last Bowel Movement 02/02/18 02/02/18 Narrative: 3 laparoscopic incisions healing beautifully been the Steri-Strips. No erythema , ecchymosis, or drainage. Abdomen is soft. Extremities are non-edematous. Right shoulder surgery dressing intact. Results - Labs 02/04/18 05:30 02/04/18 05:50 - Imaging Imaging: ITS Impressions Cholangiopancreatography MRI 02/03/18 00:00 CONCLUSION: 1. 1.4 cm gallstone in the gallbladder otherwise unremarkable study Abdomen/Pelvis CT 02/03/18 00:35 CONCLUSION: No acute CT findings in the abdomen or pelvis. Gallbladder Ultrasound 02/03/18 02:07 CONCLUSION: 1. Gallbladder stones and sludge. 2. Mildly prominent common bile duct Assessment and Plan - Assessment (1) Calculus of gallbladder with cholecystitis Code(s): K80.10 - Calculus of gallbladder with chronic cholecystitis without obstruction Status: Acute (2) Elevated liver function tests Code(s): R94.5 - Abnormal results of liver function studies Status: Acute - Plan Postop day 2 status post laparoscopic cholecystectomy for acute and chronic calculus cholecystitis. MRCP preoperatively did not demonstrate common bile duct stones, however liver function tests have slowly increased following surgery. The surgery itself was uncomplicated, her anatomy was easy to identify and the risk of post surgical complication as an etiology of the abnormal liver function tests is exceedingly low. The patient has been evaluated by Dr. Cornell of gastroenterology who apparently is planning endoscopy and possible ERCP this afternoon. I discussed my impression with the patient who understands. General surgery will be available on an as-needed basis over the weekend.
[2018-02-05 14:33] LABS: Albumin 3.1 g/dL (3.4-5.0)
[2018-02-05] MEDS ORDERED: Chlorhexidine Gluconate 2% 1 Pack (2 Cloths) TOPICAL ONE (14:36)
[2018-02-05] MEDS ORDERED: Metoprolol Tartrate 25 MG Tablet PO ONE (14:36)
[2018-02-05] MEDS ORDERED: Sodium Chlor 0.9% Inj 500 ML IV.SIG SCH (15:00)
--- NOTE | 2018-02-05 15:14 | GIPROC ---
[facility] [address] [place] [address], [id number] EGD PROCEDURE REPORT EXAM DATE: 02/05/2018 PATIENT NAME: Kaley Lim MR #: [id number] BIRTHDATE: 1970 ATTENDING: Summer Cornell MD ORDER #: [id number] [employer] P[employer]AGES: Shaye Hill and Tanya Harmon STATUS: inpatient INDICATIONS: The patient is a 47 yr old female here for an EGD due to epigastric abdominal pain and nausea PROCEDURE PERFORMED: EGD w/ biopsy MEDICATIONS: None and Per Anesthesia. TOPICAL ANESTHETIC: CONSENT: The patient understands the risks and benefits of the procedure and understands that these risks include, but are not limited to: sedation, allergic reaction, infection, perforation and/or bleeding. Alternative means of evaluation and treatment include, among others: physical exam, x-rays, and/or surgical intervention. The patient elects to proceed with this endoscopic procedure. medical equipment was checked for proper function. Hand hygiene and appropriate measures for infection prevention was taken. After the risks, benefits and alternatives of the procedure were thoroughly explained, Informed consent was verified, confirmed and timeout was successfully executed by the treatment team. The patient was anesthetized with topical anesthesia and the [employer] [id number] endoscope was introduced through the mouth and advanced to the second portion of the duodenum. Retroflexed views revealed a hiatal hernia The gastroscope was then slowly withdrawn and removed. ESOPHAGUS: The mucosa of the esophagus appeared normal. STOMACH: There was mild gastritis in the gastric antrum. A biopsy was performed using cold forceps. Sample sent for histology. DUODENUM: A small non-bleeding, shallow and clean-based ulcer was found in the 1st part of the duodenum. ADVERSE EVENTS: There were no complications. IMPRESSIONS: 1. The esophagus appeared normal 2. There was mild gastritis in the gastric antrum; biopsy was performed 3. Small ulcer was found in the 1st part of the duodenum 4. Retroflexed views revealed a hiatal hernia RECOMMENDATIONS: 1. Await biopsy results. Biopsy results will not be ready for 7-10 days. If you don't hear from us in two weeks, call our office for biopsy results. 2. Anti-reflux regimen 3. Continue PPI PATIENT CONDITION: stable DISPOSITION: Inpatient REPEAT EXAM: Return 1 year EGD pending biopsy results Summer Cornell MD eSigned: Summer Cornell MD 02/05/2018 3:13 PM cc: PATIENT NAME: Klaey Lim MR#: [id number]
[2018-02-05] MEDS ORDERED: Sincalide Inj 5 MCG Vial IV.PUSH ONE (17:31)
--- NOTE | 2018-02-05 19:17 | NM ---
EXAM DATE: 02/05/2018 6:41 PM EDT AGE/SEX: 47 years / Female INDICATIONS: Status post cholecystectomy on 02/03/18. Pain with increased liver enzymes. CLINICAL DATA: This is the patient's initial encounter. Patient reports that signs and symptoms have been present for 1 day and indicates a pain score of 0/10. MEDICAL/SURGICAL HISTORY: None. Hysterectomy. COMPARISON: No prior exams available for comparison. DOSE: 1704 mCi Tc-99m mebrofenin i.v. Medication: 1.5 mcg Cholecystokinin IV No symptomatic response Cholecystokinin was administered by slow infusion over 8 minutes beginning at 20 minutes. TECHNIQUE: Following the intravenous administration of radiotracer, dynamic sequential images were pe rformed with continuous acquisition. Time-activity curves were generated. FINDINGS: There is hepatic uptake with diminished rate of excretion. Previous cholecystectomy. Common bile duct is patent. This passes of activity into small bowel. CONCLUSION: 1. Diminished hepatic function but without evidence for biliary obstruction. Previous cholecystectom y. Electronically signed by: Yared Meyer MD 02/05/2018 7:15 PM EDT
[2018-02-05] MEDS: HYDROmorphone PF Inj 2 MG/ML Vial IV.PUSH PRN (23:22)
[2018-02-06] MEDS: Sod Chloride 0.9% Inj 1,000 ML IV.CONT SCH ×3 (03:44→22:10)
[2018-02-06] MEDS: HYDROmorphone PF Inj 2 MG/ML Vial IV.PUSH PRN ×4 (05:36→20:45)
[2018-02-06] MEDS ORDERED: Succinylcholine Inj 100 MG/5 ML Syringe IV.PUSH ONE (09:00)
[2018-02-06] MEDS ORDERED: Lidocaine PF 1% Inj 5 ML Syringe OTHER ONE (09:00)
[2018-02-06] MEDS: Senna/Docusate Sodium 8.6/50 MG Tablet PO SCH ×2 (09:39→20:46)
--- NOTE | 2018-02-06 10:24 | P.PCN ---
Date of procedure: 02/06/18 Pre-op diagnosis: Choledocholithiasis, obstructive jaundice, elevated liver function tests Procedure: PROCEDURE PERFORMED ERCP with sphincterotomy and balloon extraction PROCEDURE: The procedure, risks and benefits were discussed with Patient/POA and informed consent was obtained. Anesthesia sedated Patient with Diprivan. Patient was placed in the left lateral decubitus position. ERCP: Patient was placed in a prone position. The [employer]ax videoscope was introduced through the oropharynx and advanced to the second portion of the duodenum where the ampula was identified. [] FINDINGS: The ampulla appeared to be unremarkable and within normal limits initially we obtained pancreatic duct cannulation with the wire no contrast was injected therefore a needle knife sphincterotomy was performed and thereafter we were able to obtain easy cannulation of the common bile duct there were multiple small filling defects in the distal common bile duct using the sphincterotomy was extended then using a 12 mm balloon we were able to extract multiple small stones thereafter and obstructive cholangiogram showed the bile duct to be free of any filling defects the intrahepatics were unremarkable and there was no bile leak noted during the procedure ESTIMATED BLOOD LOSS: None SPECIMENS REMOVED: None COMPLICATIONS: None IMPRESSION: Choledocholithiasis PLAN: Supportive care Anesthesia: GETA Surgeon: Karthik Patrick Condition: stable Disposition: floor
--- NOTE | 2018-02-06 10:52 | FL ---
EXAM DATE: 02/06/2018 10:22 AM EDT AGE/SEX: 47 years / Female INDICATIONS: Obstruction. Symptomatic cholelithiasis. CLINICAL DATA: This is the patient's subsequent encounter. Patient reports that signs and symptoms h ave been present for 3 days and indicates a pain score of Nonresponsive. MEDICAL/SURGICAL HISTORY: None. None. COMPARISON: No prior exams available for comparison. FINDINGS: An ERCP was performed by the ordering physician. 3 films were submitted. There are no residual common duct stones. CONCLUSION Negative for common duct stones Electronically signed by: Jaiden Hernandez MD 02/06/2018 10:51 AM EDT
--- NOTE | 2018-02-06 12:05 | P.PNIM ---
Subjective Interval history: Patient reports some nausea after the procedure which has improved. Denies any chest pain or shortness of breath. Physical Exam Vital signs: Vital Signs 02/05/18 12:00 02/05/18 14:25 02/05/18 14:40 Temperature 97.8 F 98.2 F Pulse Rate 69 71 Respiratory Rate 20 18 16 Blood Pressure 141/66 H 139/74 Pulse Oximetry 95 95 02/05/18 15:25 02/05/18 15:40 02/05/18 15:50 Temperature 98.1 F 98.1 F Pulse Rate 62 65 65 Respiratory Rate 15 16 16 Blood Pressure 122/74 135/74 135/77 Pulse Oximetry 95 95 96 02/05/18 16:00 02/05/18 20:00 02/05/18 23:35 Temperature 98.7 F 98.5 F 98.3 F Pulse Rate 70 74 61 Respiratory Rate 20 20 17 Blood Pressure 150/67 H 128/66 140/65 Pulse Oximetry 95 95 97 02/06/18 08:00 02/06/18 09:50 02/06/18 10:02 Temperature 98.0 F 97.7 F Pulse Rate 55 L 58 L 51 L Respiratory Rate 16 17 15 Blood Pressure 118/63 107/57 L 116/61 Pulse Oximetry 96 98 99 Intake & Output 02/05/18 02/06/18 02/06/18 18:59 06:59 18:59 Intake Total 2170 / 2170 480 / 480 1400 / 1400 Output Total 600 / 600 0 / 0 Balance 1570 / 1570 480 / 480 1400 / 1400 Weight 75.3 kg Intake: IV 1999 / 1999 1400 / 1400 NS Inj 1,000 ML @ 100 mls/hr IV 2000 / 1999 1000 / 1000 .CONT .Q10H IRVIN Rx#:[id number] LR 1000 mL Inj 1,000 ML @ 30 400 / 400 mls/hr IV.SIG .Q24H IRVIN Rx#: [id number] Oral 0 / 0 480 / 480 Anesthesia Amount 70 / 70 Other 100 / 100 Output: Urine 600 / 600 Estimated Blood Loss 0 / 0 Other: # Voids 2 Date of Last Bowel Movement 02/05/18 Narrative: GENERAL: Patient sitting up in bed. Appears comfortable. SKIN: Warm and dry. HEAD: Normocephalic. EYES: No scleral icterus. No injection or drainage. NECK: Supple, trachea midline. No JVD CARDIOVASCULAR: Regular rate and rhythm without murmurs, gallops, or rubs. RESPIRATORY: Breath sounds equal bilaterally. No accessory muscle use. GASTROINTESTINAL: Abdomen soft, non-tender, nondistended. MUSCULOSKELETAL: No cyanosis, or edema. BACK: Nontender without obvious deformity. No CVA tenderness. Results - Labs CBC & Chem 7: 02/04/18 05:30 02/04/18 05:50 Laboratory Results - last 24 hr 02/05/18 14:10 Total Bilirubin 5.1 H Direct Bilirubin 4.0 H Indirect Bilirubin 1.1 H AST 441 H ALT 718 H Alkaline Phosphatase 302 H Total Protein 7.0 Albumin 3.1 L - Imaging Impressions Bile Acid Absorption NM 02/05/18 00:00 CONCLUSION: 1. Diminished hepatic function but without evidence for biliary obstruction. Previous cholecystectomy. Assessment and Plan - Assessment (1) Symptomatic cholelithiasis Code(s): K80.20 - Calculus of gallbladder without cholecystitis without obstruction Status: Deleted - Plan This is a 47-year-old female patient with: //Acute symptomatic cholelithiasis, status post cholecystectomy 02/03/18. //Transaminitis and elevated bilirubin suspect secondary to above. -Patient reports of right upper quadrant abdominal pain and bloating with constipation 2 days. -Recently on hydrocodone for pain control status post shoulder surgery. -Reports of last bowel movement 2 days ago. -Abdominal pelvis CT reviewed no significant findings. Gallbladder ultrasound reviewed showing stones and sludge. As well as possible common bile duct stone. An MRCP was performed, showing a 1.4 cm gallbladder stone with no other remarkable findings. -General surgery has seen patient, appreciate input and recommendations. S/p cholecystectomy 02/03/18. Will undergo a EGD/colonoscopy today. -CBC reviewed, essentially unremarkable. Afebrile. No leukocytosis. Monitor for infection. Continue to monitor LFTs. -Antiemetics as needed. Continue IVF. -Pain control, Dilaudid IV available as needed for pain scale. -Worsening total bilirubin levels, mild jaundice noted on exam. Start hepatitis workup. GI following patient. -Supportive care. = 02/06. Status post ERCP with sphincterotomy and removal of common bile duct stones. Appreciate GI assistance. Continue IV fluids. Continue to monitor. //Constipation secondary to narcotics -Continue bowel regimen. Monitor response. -Still without BM. = Appreciate GI and general surgery assistance. //Recent right shoulder surgery. Appears to be healing well. Consult OT DVT prophylaxis: SCDs. Ambulation. Discharge Planning: Awaiting clinical improvement. Need GI and general surgery clearance. Await bowel movement Consult PT and OT.
[2018-02-06 12:06] LABS: Baso % (Auto) 0.2 % (0.0-2.0); Eos # (Auto) 0.1 th/mm3 (0.0-0.4); Eos % (Auto) 0.8 % (0.0-4.0); Hematocrit 33.9 % (35.0-46.0); Hemoglobin 12.1 gm/dL (11.6-15.3); Lymph # (Auto) 1.1 th/mm3 (1.0-4.8); Lymph % (Auto) 9.5 % (9.0-44.0); Mean Corpuscular HGB Conc 35.7 % (32.0-36.0); Mean Corpuscular Hemoglobin 30.6 pg (27.0-34.0); Mean Corpuscular Volume 85.9 fL (80.0-100.0); Mean Platelet Volume 9.5 fL (7.0-11.0); Mono # (Auto) 0.4 th/mm3 (0.0-0.9); Mono % (Auto) 3.1 % (0.0-8.0); Neut # (Auto) 10.4 th/mm3 (1.8-7.7); Neut % (Auto) 86.4 % (16.0-70.0); Platelet Count 261 th/mm3 (150-450); Red Blood Count 3.95 mil/mm3 (4.00-5.30)
[2018-02-06 12:25] LABS: Alanine Aminotransferase 557 U/L (10-53); Albumin 3.2 g/dL (3.4-5.0); Anion Gap 6 meq/L (5-15); Aspartate Aminotransferase 168 U/L (15-37); Blood Urea Nitrogen 8 mg/dL (7-18); Calcium 8.3 mg/dL (8.5-10.1); Carbon Dioxide 30.9 meq/L (21.0-32.0); Chloride 104 meq/L (98-107); Glomerular Filtration Rate Greater Than 89 mL/min (>89); Glucose,Random 112 mg/dL (74-106); Potassium 3.4 meq/L (3.5-5.1); Sodium 141 meq/L (136-145)
[2018-02-06 12:28] LABS: Alkaline Phosphatase 291 U/L (45-117); Total Protein 7.1 g/dL (6.4-8.2)
[2018-02-07] MEDS: HYDROmorphone PF Inj 2 MG/ML Vial IV.PUSH PRN ×2 (00:50→09:27)
[2018-02-07 06:12] LABS: Hematocrit 32.8 % (35.0-46.0); Hemoglobin 10.9 gm/dL (11.6-15.3); Mean Corpuscular HGB Conc 33.3 % (32.0-36.0); Mean Corpuscular Hemoglobin 29.3 pg (27.0-34.0); Mean Corpuscular Volume 88.1 fL (80.0-100.0); Mean Platelet Volume 9.4 fL (7.0-11.0); Platelet Count 252 th/mm3 (150-450); Red Blood Count 3.73 mil/mm3 (4.00-5.30); White Blood Count 8.7 th/mm3 (4.0-11.0)
[2018-02-07 06:36] LABS: Alanine Aminotransferase 369 U/L (10-53); Albumin 2.8 g/dL (3.4-5.0); Anion Gap 9 meq/L (5-15); Aspartate Aminotransferase 59 U/L (15-37); Blood Urea Nitrogen 5 mg/dL (7-18); Calcium 7.8 mg/dL (8.5-10.1); Carbon Dioxide 27.3 meq/L (21.0-32.0); Chloride 105 meq/L (98-107); Glomerular Filtration Rate Greater Than 89 mL/min (>89); Glucose,Random 91 mg/dL (74-106); Potassium 3.5 meq/L (3.5-5.1); Sodium 141 meq/L (136-145)
[2018-02-07 06:38] LABS: Alkaline Phosphatase 229 U/L (45-117); Total Protein 6.3 g/dL (6.4-8.2)
[2018-02-07] MEDS: Sod Chloride 0.9% Inj 1,000 ML IV.CONT SCH ×3 (09:27→21:52)
[2018-02-07] MEDS: Senna/Docusate Sodium 8.6/50 MG Tablet PO SCH ×2 (09:41→21:52)
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
--- NOTE | 2018-02-07 14:44 | P.PNGI ---
Subjective Interval history: resting in the bed , tolerating diet, No ABD pain, No nausea, vomiting HGB 10.9 <ErmaIwona M - Last Filed: 02/08/18 08:18> Physical Exam Vital signs: Vital Signs 02/07/18 00:00 02/07/18 08:00 02/07/18 12:00 Temperature 97.5 F L 98.2 F 98.1 F Pulse Rate 58 L 65 55 L Respiratory Rate 18 18 18 Blood Pressure 145/62 H 113/58 L 114/60 Pulse Oximetry 96 97 95 02/07/18 16:00 Temperature 98.1 F Pulse Rate 102 H Respiratory Rate 18 Blood Pressure 134/61 Pulse Oximetry 95 Intake & Output 02/07/18 02/07/18 02/08/18 06:59 18:59 06:59 Intake Total 1380 / 1380 3100 / 3100 Output Total Balance 1379 / 1379 3100 / 3100 Intake: IV 1000 / 1000 1999 NS Inj 1,000 ML @ 100 mls/hr IV 1000 / 1000 1999 .CONT .Q10H [facility] Rx#:[id number] Oral 380 / 380 1100 / 1100 Output: Stool Other: # Voids 3 4 Date of Last Bowel Movement 02/05/18 02/07/18 # Bowel Movements 1 <Karthik Patrick E - Last Filed: 02/07/18 20:44> Vital signs: Vital Signs 02/06/18 16:00 02/06/18 20:00 02/07/18 00:00 Temperature 97.4 F L 98.3 F 97.5 F L Pulse Rate 65 65 58 L Respiratory Rate 18 18 18 Blood Pressure 134/71 113/57 L 145/62 H Pulse Oximetry 95 95 96 02/07/18 08:00 02/07/18 12:00 Temperature 98.2 F 98.1 F Pulse Rate 65 55 L Respiratory Rate 18 18 Blood Pressure 113/58 L 114/60 Pulse Oximetry 97 95 Intake & Output 02/06/18 02/07/18 02/07/18 18:59 06:59 18:59 Intake Total 3200 / 3200 1380 / 1380 1000 / 1000 Output Total 600 / 600 Balance 2600 / 2600 1379 / 1379 1000 / 1000 Intake: IV 1400 / 1400 1000 / 1000 1000 / 1000 NS Inj 1,000 ML @ 100 mls/hr IV 1000 / 1000 1000 / 1000 1000 / 1000 .CONT .Q10H [facility] Rx#:[id number] LR 1000 mL Inj 1,000 ML @ 30 400 / 400 mls/hr IV.SIG .Q24H [facility] Rx#: [id number] Oral 1800 / 1800 380 / 380 Output: Urine 600 / 600 Stool 1 / 1 Estimated Blood Loss 0 / 0 Other: # Voids 3 Date of Last Bowel Movement 02/05/18 02/05/18 - Constitutional obese - Routine HEENT Exam Head: Present: normocephalic ENT: Present: mucous membranes moist - Routine Neck Exam Present: supple - Routine Respiratory Exam Present: accessory muscle use (No SOB) - Routine Cardiovascular Exam Present: S1, S2 - Routine Abdominal Exam Present: soft (round), normoactive bowel sounds <Iwona Ritchie - Last Filed: 02/08/18 08:18> Results - Labs CBC & Chem 7: 02/07/18 05:25 02/07/18 05:25 Laboratory Results - last 24 hr 02/07/18 02/07/18 05:25 05:25 WBC 8.7 RBC 3.73 L Hgb 10.9 L Hct 32.8 L MCV 88.1 MCH 29.3 MCHC 33.3 RDW 13.0 Plt Count 252 MPV 9.4 Sodium 141 Potassium 3.5 Chloride 105 Carbon Dioxide 27.3 Anion Gap 9 BUN 5 L Creatinine 0.46 L Estimated GFR Greater than 89 Random Glucose 91 Calcium 7.8 L Total Bilirubin 0.9 AST 59 H ALT 369 H Alkaline Phosphatase 229 H Total Protein 6.3 L D Albumin 2.8 L <Karthik Patrick - Last Filed: 02/07/18 20:44> - Labs CBC & Chem 7: 02/07/18 05:25 02/07/18 05:25 Laboratory Results - last 24 hr 02/07/18 02/07/18 05:25 05:25 WBC 8.7 RBC 3.73 L Hgb 10.9 L Hct 32.8 L MCV 88.1 MCH 29.3 MCHC 33.3 RDW 13.0 Plt Count 252 MPV 9.4 Sodium 141 Potassium 3.5 Chloride 105 Carbon Dioxide 27.3 Anion Gap 9 BUN 5 L Creatinine 0.46 L Estimated GFR Greater than 89 Random Glucose 91 Calcium 7.8 L Total Bilirubin 0.9 AST 59 H ALT 369 H Alkaline Phosphatase 229 H Total Protein 6.3 L D Albumin 2.8 L - Procedures Pre-op diagnosis: Choledocholithiasis, obstructive jaundice, elevated liver function tests Procedure: ERCP with sphincterotomy and balloon extraction IMPRESSION: Choledocholithiasis PLAN: Supportive care Surgeon: Karthik Patrick <Iwona Ritchie - Last Filed: 02/08/18 08:18> Assessment and Plan - Plan Patient seen and examined Agree with above Continue with current supportive care Monitor labs LFTs appear to be resolving Not much to add at this point we will sign off <Karthik Patrick - Last Filed: 02/07/18 20:44> - Plan Cholelithiasis Obstructive jaundice Elevated liver enzymes transaminitis Patient was transitioned here for ERCP with sphincterotomy and balloon extraction. This was performed on 02/06/[address] Patrick, without any complications Findings include ampulla unremarkable needle knife sphincterotomy performed multiple small filling defects of the distal common bile duct. Multiple small stones extracted no bile leak noted 02/07/2018 patient is sitting up in the bed notes some mild abdominal soreness but abdominal pain is improving current labs show hemoglobin 10.9, bilirubin 0.9 , AST 59, ALT 369, alkaline phosphatase 229, which are all improving patient denies any dizziness or weakness and continues with IV hydration. Patient is now eating first regular food encouraged to chew slowly and eat slowly. Currently has no nausea or vomiting Previous EGD showed small ulcer and gastritis. Once patient was stable she will need to follow-up in the office for any further recommendations Plan Diet as tolerated solid food Added Pepcid Monitor lab which includes bilirubin and LFTs and hemoglobin, transfuse if needed Monitor bowel regimen Supportive care Patient was seen per Dr. Patrick and myself, note was written on his behalf <Iwona Ritchie - Last Filed: 02/08/18 08:18>
[2018-02-07] MEDS: Famotidine 20 MG Tablet PO SCH ×2 (15:42→21:52)
[2018-02-07] MEDS ORDERED: Potassium Chloride 25 MEQ Effervescent Tablet PO ONE (17:00)
[2018-02-08] MEDS: Sod Chloride 0.9% Inj 1,000 ML IV.CONT SCH ×2 (06:30→15:18)
[2018-02-08] MEDS: Famotidine 20 MG Tablet PO SCH (08:23)
[2018-02-08] MEDS: Senna/Docusate Sodium 8.6/50 MG Tablet PO SCH (08:24)
[2018-02-08 09:24] VITALS: TEMP 98.1
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
[2018-02-08 14:22] VITALS: BP 111/59; PULSE 59; RESP 18; O2SAT 94
== END 2018-02-08 15:11 | disposition home or self-care (01) ==
LOC: PHED 23:27 → PHEDA 23:27 → PH3 02-03 04:55 → N07 02-05 21:55
PROVIDERS: ADMIT Internal Medicine; ATTEND Internal Medicine
PROC: PANENDO (2018-02-05 15:01)